=== PATIENT | female | born 1965 | race American Indian/Alaskan Native ===

== ENCOUNTER 2021-08-23 20:00 | Emergency (ER) | payer MEDICAID | END 2021-08-24 19:16 | disposition left against medical advice (07) | LOC: ED 20:00 | DX: S80.869A Insect bite (nonvenomous), unspecified lower leg, initial encounter (principal); Z53.21 Procedure and treatment not carried out due to patient leaving prior to being seen by health care provider; W57.XXXA Bitten or stung by nonvenomous insect and other nonvenomous arthropods, initial encounter; Y93.89 Activity, other specified; Y92.89 Other specified places as the place of occurrence of the external cause; Y99.8 Other external cause status ==